=== PATIENT | female | born 1995 | race Caucasian/White ===

== ENCOUNTER 2022-05-28 19:14 | Emergency (ER) | payer OTHER ==
[2022-05-28] MEDS ORDERED: metroNIDAZOLE 500 MG Tab PO ONE (19:15)
[2022-05-28] MEDS ORDERED: Ondansetron 4 MG Tab.DIS PO ONE (19:15)
[2022-05-28] MEDS ORDERED: Ondansetron 4 MG Tab.DIS PO STA (19:40)
[2022-05-28 19:59] LABS: ESTIMATED GFR 91 mL/min (>60)
[2022-05-28] MEDS ORDERED: metroNIDAZOLE 500 MG Tab PO STA ×2 (21:08→21:09)
== END 2022-05-28 21:30 | disposition home or self-care (01) ==
LOC: FB.ED 19:14
DX: U07.1 COVID-19 (principal); N76.0 Acute vaginitis; B96.89 Other specified bacterial agents as the cause of diseases classified elsewhere; Z79.899 Other long term (current) drug therapy; Z20.822 Contact with and (suspected) exposure to COVID-19
CPT/HCPCS: 36415; 80048; 81001; 85025; 87635; 99284; A9270; Q0162; U0002